=== PATIENT | male | born 1980 | race Caucasian/White ===

== ENCOUNTER 2016-07-12 02:00 | Emergency (ER) | payer OTHER ==
[2016-07-12] MEDS ORDERED: Morphine INJ* 4 MG/ML 1 ML CARPUJECT IV ONE ×2 (02:17→08:26)
[2016-07-12] MEDS ORDERED: NS 0.9% 1000 ML* 1,000 ML IV ONE ×2 (02:17→07:59)
[2016-07-12] MEDS ORDERED: LORazepam INJ* 2 MG/ML 1 ML VIAL IV PUSH ONE (02:18)
[2016-07-12 02:34] LABS: Hematocrit 46 % (42-52); Hemoglobin 15.5 g/dl (14.0-18.0); Mean Corpuscular HGB Conc 34 g/dl (31-36); Mean Corpuscular Hemoglobin 30 pg (27-31); Mean Corpuscular Volume 90 fL (80-94); Mean Platelet Volume 8 um3 (7.4-10.4); Red Blood Count 5.11 10^6/ul (4.0-5.4); Red Cell Distribution Width 13 % (10.5-15); White Blood Count 10.8 10^3/ul (3.5-10.8)
[2016-07-12 02:52] LABS: ALT 17 U/L (7-52); AST 16 U/L (13-39); Albumin 4.8 g/dL (3.2-5.2); Alkaline Phosphatase 45 U/L (34-104); Anion Gap 12 mmol/L (2-11); BUN/Creatinine Ratio 15.1 (8-20); Blood Urea Nitrogen 14 mg/dL (6-24); C Reactive Protein 65.68 mg/L (< 5.00); CO2 Carbon Dioxide 22 mmol/L (22-32); Calcium 10.4 mg/dL (8.6-10.3); Chloride 98 mmol/L (101-111); EGFR African American 120.3 (>60); EGFR Non-African American 93.6 (>60); Globulin 2.9 g/dL (2-4); Glucose 102 mg/dL (70-100); Lipase 21 U/L (11.0-82.0); Potassium 3.6 mmol/L (3.5-5.0); Sodium 132 mmol/L (133-145); Total Protein 7.7 g/dL (6.4-8.9)
[2016-07-12] MEDS ORDERED: Al Hydrox/Mg Hydrox/Simet LIQ* 30 ML UDC PO ONE (04:16)
[2016-07-12] MEDS ORDERED: Lidocaine 2% VISCOUS* 15 ML UDC PO ONE (04:16)
[2016-07-12 04:34] LABS: Alcohol < 10 mg/dL (<10)
--- NOTE | 2016-07-12 04:56 | ED ---
Steve Callahan Adam, scribed for Michael Nuñez MD on 07/12/16 at 0214 . Abdominal Pain/Male - HPI Summary HPI Summary: Pt is a 35 year old male presenting with abdominal pain. The pain set on at 12: 00 yesterday and was accompanied by an episode of vomiting. The pt has not vomited any more since then but he states that his abdomen has been severely aching. He states that it feels like his "stomach is on fire." The pain "comes in surges." Lying still alleviates the pain and any movement aggravates it. He has never had pain like this before. The pt also reports 1 episode of diarrhea. - History of Current Complaint Chief Complaint: EDAbdPain Stated Complaint: ABD PAIN Hx Obtained From: Patient Onset/Duration: Sudden Onset, Lasting Days, Still Present Timing: Constant Severity Initially: Moderate Severity Currently: Moderate Pain Intensity: 9 Pain Scale Used: 0-10 Numeric Location: Diffuse Aggravating Factor(s): Movement Alleviating Factor(s): Position - Lying still Associated Signs And Symptoms: Positive: Vomiting, Diarrhea - Allergies/Home Medications Allergies/Adverse Reactions: Allergies Allergy/AdvReac Type Severity Reaction Status Date / Time Penicillins AdvReac Severe GI Verified 07/12/16 02:07 upset/vomiting PMH/Surg Hx/FS Hx/Imm Hx Previously Healthy: Yes - Cancer History Cancer Type, Location and Year: Negative Infectious Disease History: No Infectious Disease History: Denies: Traveled Outside the [place] in Last 30 Days - Family History Known Family History: Positive: Other - Lupus (mother), Crohn's (brother) - Social History Occupation: Employed Full-time Lives: Alone Alcohol Use: Daily Hx Substance Use: Yes Substance Use Type: Reports: Marijuana Hx Tobacco Use: Yes Smoking Status (MU): Current Every Day Smoker Review of Systems Negative: Fever Positive: Abdominal Pain, Vomiting, Diarrhea All Other Systems Reviewed And Are Negative: Yes Physical Exam Triage Information Reviewed: Yes Vital Signs On Initial Exam: Initial Vitals Temp Pulse Resp BP Pulse Ox 98.4 F 79 18 140/112 100 07/12/16 02:03 07/12/16 02:03 07/12/16 02:03 07/12/16 02:03 07/12/16 02:03 Vital Signs Reviewed: Yes Appearance: Positive: Well-Appearing, Pain Distress - mild discomfort Skin: Positive: Warm Head/Face: Positive: Normal Head/Face Inspection Eyes: Positive: INES ENT: Positive: Hearing grossly normal Neck: Positive: Supple Respiratory/Lung Sounds: Positive: Clear to Auscultation, Breath Sounds Present Cardiovascular: Positive: RRR Abdomen Description: Positive: Soft, Other: - mild diffuse abd tenderness Bowel Sounds: Positive: Present Musculoskeletal: Positive: Strength/ROM Intact Neurological: Positive: Sensory/Motor Intact Diagnostics - Vital Signs Vital Signs Temp Pulse Resp BP Pulse Ox 07/12/16 02:03 98.4 F 79 18 140/112 100 - Laboratory Lab Results: Lab Results 07/12/16 07/12/16 07/12/16 Range/Units 02:25 02:25 02:25 WBC 10.8 (3.5-10.8) 10^3/ul RBC 5.11 (4.0-5.4) 10^6/ul Hgb 15.5 (14.0-18.0) g/dl Hct 46 (42-52) % MCV 90 (80-94) fL MCH 30 (27-31) pg MCHC 34 (31-36) g/dl RDW 13 (10.5-15) % Plt Count 158 (150-450) 10^3/ul MPV 8 (7.4-10.4) um3 Neut % (Auto) 70.1 (38-83) % Lymph % (Auto) 20.1 L (25-47) % [place] % (Auto) 7.9 (1-9) % Eos % (Auto) 1.1 (0-6) % Baso % (Auto) 0.8 (0-2) % Absolute Neuts (auto) 7.6 (1.5-7.7) 10^3/ul Absolute Lymphs (auto) 2.2 (1.0-4.8) 10^3/ul Absolute Monos (auto) 0.9 H (0-0.8) 10^3/ul Absolute Eos (auto) 0.1 (0-0.6) 10^3/ul Absolute Basos (auto) 0.1 (0-0.2) 10^3/ul Absolute Nucleated RBC 0.01 10^3/ul Nucleated RBC % 0.1 Sodium 132 L (133-145) mmol/L Potassium 3.6 (3.5-5.0) mmol/L Chloride 98 L (101-111) mmol/L Carbon Dioxide 22 (22-32) mmol/L Anion Gap 12 H (2-11) mmol/L BUN 14 (6-24) mg/dL Creatinine 0.93 (0.67-1.17) mg/dL Est GFR ( Amer) 120.3 (>60) Est GFR (Non-Af Amer) 93.6 (>60) BUN/Creatinine Ratio 15.1 (8-20) Glucose 102 H (70-100) mg/dL Lactic Acid 1.6 (0.5-2.0) mmol/L Calcium 10.4 H (8.6-10.3) mg/dL Total Bilirubin 1.00 (0.2-1.0) mg/dL AST 16 (13-39) U/L ALT 17 (7-52) U/L Alkaline Phosphatase 45 (34-104) U/L C-Reactive Protein 65.68 H (< 5.00) mg/L Total Protein 7.7 (6.4-8.9) g/dL Albumin 4.8 (3.2-5.2) g/dL Globulin 2.9 (2-4) g/dL Albumin/Globulin Ratio 1.7 (1-3) Lipase 21 (11.0-82.0) U/L Serum Alcohol < 10 (<10) mg/dL Result Diagrams: 07/12/16 02:25 07/12/16 02:25 Lab Statement: Any lab studies that have been ordered have been reviewed, and results considered in the medical decision making process. Re-Evaluation - Re-Evaluation First Eval Re-Evaluation Time: 05:00 Change: Improved - mildly improved, still c/o abd pain, will ct Abdominal Pain Fem Course/Dx - Diagnoses Provider Diagnoses: Abdominal pain Discharge - Discharge Plan Condition: Stable Disposition: HOME Prescriptions: Ondansetron ODT TAB* [Zofran 4 MG Odt TAB*] 8 mg PO Q6H PRN #10 tab.odt PRN Reason: Vomiting oxyCODONE/Acetamin 5/325 MG* [Percocet 5/325 TAB*] 1 tab PO Q6H PRN #12 tab MDD max 4 tabs /day PRN Reason: Pain Referrals: No Primary Care Phys,NOPCP [Primary Care Provider] - The documentation as recorded by the Steve crisostomo Adam accurately reflects the service I personally performed and the decisions made by me, Michael Nuñez MD.
[2016-07-12] MEDS ORDERED: Iohexol 300* (CONTRAST) 10 ML SDV IV ONE (05:46)
--- NOTE | 2016-07-12 08:08 | RAD ---
Indication: Diffuse abdominal pain. Contrast: Administered 97.0 ml of OMNIPAQUE 300 mgi/ml CT of the abdomen and pelvis was performed after oral and IV contrast administration. Coronal and sagittal reconstructed images were obtained. Lung bases demonstrate no pleural fluid, nodules or masses. Heart is normal size without evidence of pericardial effusion. Liver is normal in size. No focal lesions or intrahepatic ductal dilatation is noted. The common duct is not dilated. The gallbladder demonstrates no evidence of calcified gallstones, pericholecystic fluid or wall thickening. The spleen is normal in size. No adrenal lesions are noted. The kidneys demonstrate symmetric nephrograms without focal lesions. No hydronephrosis of either kidney is noted. No retroperitoneal lymphadenopathy is noted. No dilated loops of bowel are noted. CT of the pelvis demonstrates no dilated loops of bowel. The bladder is unremarkable. No hernias are identified. No evidence of bowel obstruction is identified. No hernias identified.. Urinary bladder is unremarkable. No free fluid is noted in the cul-de-sac. No hernias are identified. IMPRESSION: No abnormal masses or fluid collections are noted.
[2016-07-12] MEDS ORDERED: Famotidine IV* 10 MG/ML 2 ML (20 mg) IV SLOW PU ONE (08:18)
[2016-07-12] MEDS ORDERED: Ondansetron INJ* 2 MG/ML VIAL IV ONE (08:26)
--- NOTE | 2016-07-12 09:49 | ED ---
Joel Callahan Alok, scribed for Karlos Rios MD on 07/12/16 at 0831 . Progress - Progress Note Progress Note: 35 y/o male presents to the ED with abd cramping and epigstric pain, last signed out by Dr. Nuñez at 0700. Pt states that his pain currently is at a 6 out of 10 in severity. Pt states that his symptoms are alleviated at rest but aggravate with motion or fluid/food intake. Vital Signs Reviewed: Yes Appearance: Positive: Well-Appearing - Male, No Pain Distress, Well-Nourished Skin: Positive: Warm, Skin Color Reflects Adequate Perfusion, Dry Head/Face: Positive: Normal Head/Face Inspection Eyes: Positive: Normal, EOMI, INES ENT: Positive: ENT inspection normal Neck: Positive: Supple, Nontender Respiratory/Lung Sounds: Positive: Clear to Auscultation, Breath Sounds Present Cardiovascular: Positive: Normal, RRR Abdomen Description: Positive: Diffuse abdominal tenderness. Corroding without rebound Bowel Sounds: Positive: Present Musculoskeletal: Positive: Normal, Strength/ROM Intact Neurological: Positive: Normal, Sensory/Motor Intact, Alert, Oriented to Person Place, Time Psychiatric: Positive: Normal, Affect/Mood Appropriate Re-Evaluation - Re-Evaluation First Eval Re-Evaluation Time: 05:00 Change: Improved - mildly improved, still c/o abd pain, will ct Course/Dx - Course Course Of Treatment: Blood work is fine except for sodium 132 L, glucose 102 H, CRP 65.[address] impression: no abnormal masses or fluid collections are noted. Pt given meds by Dr. Nuñez. Pt is still in pain, giving more fluid with IV fluid and Pepcid. Pt should follow up with PCP. Instructed to return to ED for any fever, chills, pain increase, nausea, vomiting. Have r/o appendicitis, colitis, diverticulitis. Will discharge with diagnosis of Abd Pain - Diagnoses Provider Diagnoses: Abdominal pain The documentation as recorded by the Joel crisostomo Alok accurately reflects the service I personally performed and the decisions made by Gabriel hernadez Walter, MD.
[2016-07-12 12:23] VITALS: BP 125/71
== END 2016-07-12 12:32 | disposition home or self-care (01) ==
LOC: ED 02:00
DX: R10.13 Epigastric pain (principal)
CPT/HCPCS: 36415; 74177; 80053; 80320; 83605; 83690; 85025; 86140; 96374; 96375; 99284; A9270-GY; G0480; J2060; J2270; J2405; Q9967

== ENCOUNTER 2017-04-30 20:04 | Emergency (ER) | payer OTHER ==
--- NOTE | 2017-04-30 20:08 | UC ---
GI Bleed HPI - HPI Summary HPI Summary: 36 year old male presents with worsening rectal bleeding for 8 months. - History Of Current Complaint Stated Complaint: rectal bleeding Time Seen by Provider: 04/30/17 20:08 Hx Obtained From: Patient Onset/Duration: Lasting Weeks Timing: Intermittent Episodes Lasting: Severity: Blood-Streaked Stool Severity Initially: Moderate Severity Currently: Moderate - Allergies/Home medications Allergies/Adverse Reactions: Allergies Allergy/AdvReac Type Severity Reaction Status Date / Time Penicillins AdvReac Severe GI Verified 07/12/16 02:07 upset/vomiting PMH/Surg Hx/FS Hx/Imm Hx Previously Healthy: Yes - Surgical History Surgical History: None - Family History Known Family History: Positive: Other - Lupus (mother), Crohn's (brother) - Social History Alcohol Use: Daily Alcohol Amount: 2 - 24 oz beers Substance Use Type: Marijuana Substance Use Comment - Amount & Last Used: daily Smoking Status (MU): Current Every Day Smoker Review of Systems Constitutional: Negative Skin: Negative Eyes: Negative ENT: Negative Respiratory: Negative Cardiovascular: Negative Gastrointestinal: Other - rectal bleeding Genitourinary: Negative Motor: Negative Neurovascular: Negative Musculoskeletal: Negative Neurological: Negative Psychological: Negative All Other Systems Reviewed And Are Negative: Yes Physical Exam Triage Information Reviewed: Yes Vital Signs Reviewed: Yes Eye Exam: Normal ENT Exam: Normal Dental Exam: Normal Neck exam: Normal Neck: Positive: 1 Respiratory Exam: Normal Cardiovascular Exam: Normal Abdominal Exam: Normal Bowel Sounds: Positive: Present, Other: - hemeoccult (+) Musculoskeletal Exam: Normal Neurological Exam: Normal Psychological Exam: Normal Skin Exam: Normal Diagnostics - Laboratory Diagnostic Studies Completed/Ordered: hemeoccult (+) Bleed Course/Dx - Differential Dx/Diagnosis Provider Diagnoses: rectal bleed Discharge - Discharge Plan Condition: Stable Disposition: HOME Prescriptions: Omeprazole CAP* [Prilosec CAP* 20 MG] 20 mg PO DAILY #30 cap.dr Referrals: No Primary Care Phys,NOPCP [Primary Care Provider] - Karson Caldwell MD [Medical Doctor] -
[2017-04-30 20:17] VITALS: BP 123/82
[2017-04-30] MEDS ORDERED: Omeprazole CAP* 20 MG PO ONE (20:47)
[2017-05-01 10:46] LABS: Hematocrit 41 % (42-52); Hemoglobin 14.2 g/dl (14.0-18.0); Mean Corpuscular HGB Conc 35 g/dl (31-36); Mean Corpuscular Hemoglobin 32 pg (27-31); Mean Corpuscular Volume 92 fL (80-94); Mean Platelet Volume 9 um3 (7.4-10.4); Red Blood Count 4.43 10^6/ul (4.0-5.4); Red Cell Distribution Width 13 % (10.5-15); White Blood Count 9.4 10^3/ul (3.5-10.8)
[2017-05-01 10:55] LABS: Albumin 4.9 g/dL (3.2-5.2); Calcium 9.3 mg/dL (8.6-10.3); EGFR African American 130.9 (>60); EGFR Non-African American 101.8 (>60); Globulin 2.2 g/dL (2-4); Potassium 3.3 mmol/L (3.5-5.0); Total Bilirubin 0.4 mg/dL (0.2-1.0); Total Protein 7.1 g/dL (6.4-8.9)
--- NOTE | 2017-05-01 16:29 | ED ---
Course/Dx - Course Course Of Treatment: LABS BACK. NO ANEMIA. NURSING TO CALL PATIENT TO INFORM PATIENT THERE IS NO ANEMIA AND TO ENSURE THE PATIENT IS FOLLWING UP WITH GI ANS/ OR HIS PMD. - Diagnoses Provider Diagnoses: GI bleed
== END 2017-04-30 21:02 | disposition home or self-care (01) ==
LOC: UCEAST 20:04
DX: K62.5 Hemorrhage of anus and rectum (principal); Z72.89 Other problems related to lifestyle; F12.90 Cannabis use, unspecified, uncomplicated; Z72.0 Tobacco use
CPT/HCPCS: 36415; 80053; 82270; 85025; 99212; A9270-GY; G0463

== ENCOUNTER 2018-06-04 20:40 | Emergency (ER) | payer OTHER ==
[2018-06-04] MEDS ORDERED: NS 0.9% 1000 ML** 1,000 ML IV SCH (20:45)
[2018-06-04 21:04] VITALS: BP 131/73
--- NOTE | 2018-06-04 21:53 | UC ---
Syncope/New Syncope HPI - HPI Summary HPI Summary: PATIENT WAS ACCOMPANYING HIS GIRLFRIEND HERE TO THE . WHILE SITTING IN THE ROOM WAITING FOR HER TO BE SEEN HE SUDDENLY FELT LIGHTHEADED AND FAINT. HE BECAME PALE AND DIAPHORETIC AND PER THE GIRLFRIEND HIS EYES ROLLED INTO THE BACK OF HIS HEAD AND HE PASSED OUT. PATIENT WAS MOVED TO A GURNEY. POC GLUCOSE WAS 94. BP LOW-NORMAL. IV FLUIDS HUNG. AFTER SEVERAL MINUTES PATIENT STARTED TO FEEL BETTER. ATE SOME CRACKERS AND FELT EVEN BETTER. COLOR RETURNED. VITAL SIGNS IMPROVED. PATIENT REPORTS HE HAS HAD ABOUT 4 SIMILAR EPISODES IN THE PAST. HAS HAD WORKUP WHICH HE REPORTS WAS ALL NEGATIVE. ADMITS HE HAS HAD ONLY COFFEE AND A MONSTER ENERGY DRINK TODAY. DENIES ANY ALCOHOL INTAKE TODAY BUT SAYS HE SMOKED MARIJUANA 2 HRS PRIOR. - History Of Current Complaint Chief Complaint: UCGeneralIllness Stated Complaint: POSSIBLE SEIZURE Time Seen by Provider: 06/04/18 20:44 Hx Obtained From: Patient, Family/Life Science Research Assistant - GIRLFRIEND Onset/Duration: Sudden Onset, Lasting Minutes Activity At Onset: At Rest Associated Head Trauma: No Pain Intensity: 0 Pain Scale Used: 0-10 Numeric Aggravating Factor(s): Nothing Alleviating Factor(s): Nothing Associated Signs And Symptoms: Positive: Decreased Oral Intake, Diaphoresis, Lightheadedness. Negative: Vomiting - Allergies/Home Medications Allergies/Adverse Reactions: Allergies Allergy/AdvReac Type Severity Reaction Status Date / Time Penicillins Allergy Vomiting Verified 06/04/18 20:49 PMH/Surg Hx/FS Hx/Imm Hx Previously Healthy: Yes - Surgical History Surgical History: None - Family History Known Family History: Positive: Other - Lupus (mother), Crohn's (brother) - Social History Alcohol Use: Daily Alcohol Amount: 2 - 24 oz beers Substance Use Type: Marijuana Substance Use Comment - Amount & Last Used: daily Smoking Status (MU): Current Every Day Smoker Review of Systems All Other Systems Reviewed And Are Negative: Yes Constitutional: Positive: Negative Skin: Positive: Other - PALE, DIAPHORETIC Respiratory: Positive: Negative Cardiovascular: Positive: Negative Gastrointestinal: Positive: Negative Neurological: Positive: Other - SYNCOPE Physical Exam Triage Information Reviewed: Yes Appearance: No Pain Distress, Well-Nourished, Ill-Appearing - PALE Vital Signs: Initial Vital Signs Temp 97.9 F 06/04/18 20:44 Pulse 66 06/04/18 20:44 Resp 16 06/04/18 20:44 BP 100/58 06/04/18 20:44 Pulse Ox 100 06/04/18 20:44 Laboratory Tests 06/04/18 20:46 POC Glucose (mg/dL) 94 Vital Signs Reviewed: Yes Eyes: Positive: Conjunctiva Clear ENT: Positive: Hearing grossly normal Neck: Positive: Supple, Nontender, No Lymphadenopathy Respiratory Exam: Normal Cardiovascular Exam: Normal Abdomen Description: Positive: Nontender, Soft Musculoskeletal: Positive: No Edema Neurological: Positive: Alert Psychological: Positive: Normal Response To Family, Age Appropriate Behavior Skin: Positive: Other - PALE AND DIAPHORETIC INITIALLY. RESOLVED BY TIME OF D/ C. Negative: Rashes Diagnostics - EKG Cardiac Rate: NL - 63 BPM Cardiac Rhythm: Sinus: Normal Ectopy: None ST Segment: Normal Syncope Course/Dx - Course Course Of Treatment: POC GLUCOSE 94. EKG UNREMARKABLE. PATIENT FELT IMPROVED AFTER SOME IV FLUIDS AND SOME CRACKERS. STATES THIS HAS HAPPENED TO HIM SEVERAL TIMES IN THE PAST. GIVEN HIS RELATIVELY SLOW RECOVERY TIME RECOMMENDED TRANSFER TO THE ER FOR FURTHER EVALUATION. PATIENT DECLINES. ADVISED THAT HE COULD BE RISKING WORSENING OF HIS CONDITION THAT COULD POSE A THREAT TO HIS LIFE , HEALTH AND MEDICAL SAFETY. HE VERBALIZES UNDERSTANDING AND CONTINUES TO DECLINE TRANSFER. CBC AND CMP DRAWN TODAY. PATIENT STRONGLY URGED TO PRESENT TO THE ER IF HIS SYMPTOMS RECUR. - Differential Dx/Diagnosis Provider Diagnosis: Vasovagal syncope Discharge - Sign-Out/Discharge Documenting (check all that apply): Patient Departure All imaging exams completed and their final reports reviewed: No Studies - Discharge Plan Condition: Stable Disposition: HOME Patient Education Materials: Syncope (ED) Referrals: [facility] [Outside] - 1 Week Additional Instructions: YOU LIKELY HAD AN EPISODE OF VASOVAGAL SYNCOPE BUT WE DO NOT HAVE THE FACILITIES TO DEFINITIVELY RULE OUT ANY DANGEROUS UNDERLYING CONDITION. YOU FELT IMPROVED AFTER SOME IV FLUIDS AND A SNACK. BLOOD COUNT AND METABOLIC PANEL DRAWN TODAY. WE WILL CALL YOU WITH ANY ABNORMAL RESULTS. YOU HAVE DECLINED TRANSFER TO THE ER. BE ADVISED THAT BY NOT SEEKING EVALUATION AT A FACILITY WITH A HIGHER LEVEL OF CARE THAT YOU COULD BE RISKING WORSENING OF YOUR CONDITION THAT COULD POSE A THREAT TO YOUR LIFE, HEALTH AND MEDICAL SAFETY. GO DIRECTLY TO THE ER WITHOUT FAIL IF YOU DEVELOP RECURRENT SYMPTOMS OR FEVER, HEADACHE, SHORTNESS OF BREATH, NAUSEA/VOMITING OR ANYTHING ELSE CONCERNING. - Billing Disposition and Condition Condition: STABLE Disposition: Home
[2018-06-05 10:23] LABS: ABS Basophils 0 10^3/ul (0-0.2); ABS Eosinophils 0.2 10^3/ul (0-0.6); ABS Lymphocytes 2.6 10^3/ul (1.0-4.8); ABS Monocytes 0.6 10^3/ul (0-0.8); ABS Neutrophils 4.2 10^3/ul (1.5-7.7); ABS Nucleated RBC 0 10^3/ul; Eosinophil % 2.5 %; Hematocrit 39 % (42-52); Hemoglobin 13.4 g/dl (14.0-18.0); Lymphocyte % 34.2 %; Mean Corpuscular HGB Conc 34 g/dl (31-36); Mean Corpuscular Hemoglobin 31 pg (27-31); Mean Corpuscular Volume 92 fL (80-94); Mean Platelet Volume 8.1 fL (7.4-10.4); Nucleated Red Blood Cells % 0.1; Platelet Count 172 10^3/ul (150-450); Red Blood Count 4.28 10^6/ul (4.00-5.40); Red Cell Distribution Width 13 % (10.5-15); White Blood Count 7.7 10^3/ul (3.5-10.8)
[2018-06-05 10:34] LABS: Albumin 4.5 g/dL (3.2-5.2); Calcium 9.2 mg/dL (8.6-10.3); Potassium 3.7 mmol/L (3.5-5.0); Total Bilirubin 0.6 mg/dL (0.2-1.0)
[2018-06-05 10:40] LABS: Albumin/Globulin Ratio 2.4 (1-3); BUN/Creatinine Ratio 14.3 (8-20); EGFR African American 139.1 (>60); Globulin 1.9 g/dL (2-4); Total Protein 6.4 g/dL (6.4-8.9)
== END 2018-06-04 22:00 | disposition home or self-care (01) ==
LOC: UCEAST 20:40
DX: R55 Syncope and collapse (principal); Z88.0 Allergy status to penicillin; F17.200 Nicotine dependence, unspecified, uncomplicated
CPT/HCPCS: 36415; 80053; 85025; 96360; 99211; G0463

== ENCOUNTER 2019-04-13 19:22 | Emergency (ER) | payer OTHER ==
[2019-04-13] MEDS ORDERED: Ibuprofen TAB* 600 MG PO ONE (19:35)
[2019-04-13 19:58] LABS: Influenza A Molecular NEGATIVE (Negative); Influenza B Molecular NEGATIVE (Negative)
[2019-04-13] MEDS ORDERED: NS 0.9% 1000 ML** 1,000 ML IV ONE (20:01)
[2019-04-13] MEDS ORDERED: Albuterol 2.5 MG/3 ML NEB.SOL* (0.083%) INH ONE (20:01)
[2019-04-13] MEDS ORDERED: Ondansetron ODT TAB* 4 MG PO ONE (20:02)
--- NOTE | 2019-04-13 20:11 | UC ---
Respiratory Complaint HPI - HPI Summary HPI Summary: 38-year-old male comes in with a chief complaint of fevers chills cough chest congestion bodyaches and feeling ill. Started 3 days ago with upper respiratory tract infection symptoms and patient started getting sick relatively fast with course of the day fevers and body aches and cough and chest congestion. Reports yellow and green sputum. He is a smoker. He does have decreased by mouth intake. Feels lightheaded when he tries to stand up.. - History of Current Complaint Chief Complaint: UCGeneralIllness Stated Complaint: CHEST CONGESTION Time Seen by Provider: 04/13/19 19:35 Pain Intensity: 8 - Allergies/Home Medications Allergies/Adverse Reactions: Allergies Allergy/AdvReac Type Severity Reaction Status Date / Time Penicillins Allergy Vomiting Verified 06/04/18 20:49 Home Medications: Home Medications Elderberry Fruit and Flower [Black Elderberry 575 mg Cap] 1 04/13/19 [History] PMH/Surg Hx/FS Hx/Imm Hx Previously Healthy: Yes - Surgical History Surgical History: None - Family History Known Family History: Positive: Other - Lupus (mother), Crohn's (brother) - Social History Alcohol Use: Daily Alcohol Amount: 2 - 24 oz beers Substance Use Type: Marijuana Substance Use Comment - Amount & Last Used: daily Smoking Status (MU): Current Every Day Smoker Review of Systems All Other Systems Reviewed And Are Negative: Yes Constitutional: Positive: Fever, Chills, Fatigue, Other - SEE HPI Skin: Positive: Negative Eyes: Positive: Negative ENT: Positive: Sore Throat, Nasal Discharge, Sinus Congestion Respiratory: Positive: Shortness Of Breath, Cough, Other - SEE HPI Cardiovascular: Positive: Negative Gastrointestinal: Positive: Abdominal Pain - Intermittent cramping abdominal pain with this illness. Genitourinary: Positive: Negative Motor: Positive: Negative Neurovascular: Positive: Negative Musculoskeletal: Positive: Myalgia Neurological: Positive: Weakness Psychological: Positive: Negative Is Patient Immunocompromised?: No Physical Exam Triage Information Reviewed: Yes Appearance: No Pain Distress, Well-Nourished, Ill-Appearing - MILD/MODERATE Vital Signs: Initial Vital Signs Temp 103.5 F 04/13/19 19:37 Pulse 108 04/13/19 19:37 Resp 20 04/13/19 19:37 BP 114/81 04/13/19 19:37 Pulse Ox 96 04/13/19 19:37 Vital Signs Reviewed: Yes Eye Exam: Normal Eyes: Positive: Conjunctiva Clear ENT: Positive: Pharyngeal erythema, Nasal congestion, Nasal drainage, TMs normal Neck: Positive: Supple Respiratory: Positive: No respiratory distress, Rhonchi, Wheezing Cardiovascular: Positive: Tachycardia Musculoskeletal: Positive: Strength Intact, ROM Intact Neurological: Positive: Alert, Muscle Tone Normal Psychological: Positive: Normal Response To Family, Age Appropriate Behavior Skin Exam: Normal Respiratory Course/Dx - Course Course Of Treatment: I discussed the x-ray with the patient and his partner. I see a left-sided infiltrate. Radiologist's final reading is pending. Patient's fever did come down some with ibuprofen 600 mg by mouth. Patient reports his allergy to penicillin is that it makes him nauseous and vomits. He reports that he is able to take amoxicillin. Patient is a smoker therefore he does have a higher risk and therefore I will be treating with Augmentin plus a azithromycin. The recommended dosing for the Augmentin in up-to-date for community-acquired pneumonia outpatient treatment is Augmentin extended release 2000 mg by mouth twice a day for 10 days. I was unable to order it through our computer therefore I called in to [facility] for Augmentin 1000 mg XR, 2000 by mouth twice a day total #40 tablets and no refills. Here in clinic tonight patient was given 1 g of Rocephin IV and 500 mg by mouth azithromycin. I sent and the prescription for azithromycin 250 mg once a day for 4 more days. Breathing was easier after the albuterol nebulizer. Patient is being discharged home tonight with an albuterol inhaler. We discussed going to the emergency room now and having further treatment versus going home with oral medications and the patient is partner prefer to go home with oral medications. I did discuss with them that if the patient got worse at any time they should go directly to the emergency department. They agreed with this. - Differential Dx/Diagnosis Provider Diagnosis: Pneumonia Discharge ED - Sign-Out/Discharge Documenting (check all that apply): Patient Departure All imaging exams completed and their final reports reviewed: No - Discharge Plan Condition: Stable Disposition: HOME Prescriptions: Azithromycin 250 mg PO DAILY #4 tablet Patient Education Materials: Pneumonia (ED) Forms: *Work Release Referrals: [facility] [Outside] [facility] [place] [facility] [Outside] Additional Instructions: FOLLOW UP WITH YOUR DOCTOR. I have prescribed Augmentin extended release 2000 mg twice a day for 10 days. I verbally called this into [facility] pharmacy. Also will continue with azithromycin 250 mg once a day for 4 more days. Use the albuterol inhaler 2 puffs every 4 hours as needed. If there is any difficulty obtaining the medications please have the pharmacy call our clinic here for clarification. Take ibuprofen 600 mg every 6 hours as needed. GO TO THE EMERGENCY DEPARTMENT IF NOT IMPROVED OR WORSE OR ANY QUESTIONS OR CONCERNS. - Billing Disposition and Condition Condition: STABLE Disposition: Home
[2019-04-13] MEDS ORDERED: cefTRIAXone VIAL(*) 1,000 MG VIAL IVPB ONE (21:02)
[2019-04-13] MEDS ORDERED: Azithromycin TAB* 250 MG PO ONE (21:03)
[2019-04-13] MEDS ORDERED: Albuterol HFA INHALER* 8 gm MDI INH ONE (21:04)
[2019-04-13 22:17] VITALS: BP 127/83
--- NOTE | 2019-04-14 21:28 | UC ---
- Progress Note Progress Note: CXR confirms PNA. wet read correct Course/Dx - Diagnoses Provider Diagnoses: Pneumonia Discharge ED - Sign-Out/Discharge Documenting (check all that apply): Post-Discharge Follow Up All imaging exams completed and their final reports reviewed: Yes - Discharge Plan Condition: Stable Disposition: HOME Prescriptions: Azithromycin 250 mg PO DAILY #4 tablet Patient Education Materials: Pneumonia (ED) Forms: *Work Release Referrals: [facility] [Outside] [facility] [place] [facility] [Outside] Additional Instructions: FOLLOW UP WITH YOUR DOCTOR. I have prescribed Augmentin extended release 2000 mg twice a day for 10 days. I verbally called this into [facility] pharmacy. Also will continue with azithromycin 250 mg once a day for 4 more days. Use the albuterol inhaler 2 puffs every 4 hours as needed. If there is any difficulty obtaining the medications please have the pharmacy call our clinic here for clarification. Take ibuprofen 600 mg every 6 hours as needed. GO TO THE EMERGENCY DEPARTMENT IF NOT IMPROVED OR WORSE OR ANY QUESTIONS OR CONCERNS. - Billing Disposition and Condition Condition: STABLE Disposition: Home
== END 2019-04-13 21:55 | disposition home or self-care (01) ==
LOC: UCEAST 19:22
DX: J18.9 Pneumonia, unspecified organism (principal); Z88.0 Allergy status to penicillin; F17.200 Nicotine dependence, unspecified, uncomplicated
CPT/HCPCS: 71046; 87651; 96361; 96365; 99213; A9270-GY; G0463; J0696